=== PATIENT | female | born 1990 | race Caucasian/White ===

== ENCOUNTER 2023-06-25 05:41 | Inpatient (IN) | payer BC ==
[2023-06-25 06:30] VITALS: BMI 34.7
[2023-06-25] MEDS ORDERED: Ibuprofen 800 MG TAB PO PRN (06:30)
[2023-06-25] MEDS ORDERED: Lidocaine 1% (PF) 30 ML VIAL SC PRN (06:30)
[2023-06-25] MEDS ORDERED: Carboprost 250 MCG/ML AMP IM PRN (06:30)
[2023-06-25] MEDS ORDERED: Acetaminophen 500 MG TAB PO PRN (06:30)
[2023-06-25] MEDS ORDERED: Ondansetron PF 4 MG/2 ML Vial IVP PRN ×2 (06:30→10:01)
[2023-06-25] MEDS ORDERED: Methylergonovine 0.2 MG/ML VIAL IM PRN (06:30)
[2023-06-25] MEDS ORDERED: Misoprostol 200 MCG TAB PR PRN (06:30)
[2023-06-25] MEDS ORDERED: HYDROcodone/Acetaminophen 5/325 mg Tablet PO PRN ×2 (06:30)
[2023-06-25] MEDS ORDERED: fentaNYL 50 mcg/mL 1 mL Vial SLOW IVP PRN (06:30)
[2023-06-25] MEDS ORDERED: hydrALAZINE 20 MG/ML VIAL SLOW IVP PRN (06:30)
[2023-06-25] MEDS ORDERED: Promethazine HCl 25 MG/ML VIAL IM PRN ×2 (06:30→10:01)
[2023-06-25] MEDS ORDERED: Oxytocin 30 units/NS 500 ML 500 ML IV SCH (06:30)
[2023-06-25] MEDS ORDERED: Lactated Ringer's 1,000 ML IV SCH ×2 (06:30)
[2023-06-25 07:01] LABS: Hematocrit 42.7 % (34.9-44.5); Hemoglobin 14.9 g/dL (12.0-15.5); Mean Corpuscular HGB CONC 34.9 g/dL (32.0-36.0); Mean Corpuscular Hemoglobin 31.7 pg (27.0-33.0); Mean Corpuscular Volume 90.9 fl (81.6-98.3); Mean Platelet Volume 9.5 fl (7.4-10.4); Platelet Count 337 10x3/uL (150-450); RBC Distribution Width 13.2 % (11.5-14.5); White Blood Cell (WBC) Count 14.8 10x3/uL (3.5-10.5)
[2023-06-25] MEDS ORDERED: fentaNYL/Ropivacaine Epidural 100 ML ONE (07:13)
[2023-06-25 07:34] LABS: HBSAg Index 0.04 S/CO (0-0.99); Hep B Surf Ag - L&D Non-Reactive S/CO (NonReactive); Syphilis Antibody Nonreactive (Nonreactive); Syphilis Antibody Index 0.08 S/CO (<1.00 Non-Reactive)
[2023-06-25] MEDS ORDERED: Moisturizing Cream (Eucerin) 113 GM JAR TOP PRN (10:01)
[2023-06-25] MEDS ORDERED: Acetaminophen 325 MG TAB PO PRN (10:01)
[2023-06-25] MEDS ORDERED: diphenhydrAMINE 50 MG/ML VIAL IVP PRN (10:01)
[2023-06-25] MEDS ORDERED: Lactated Ringer's 500 ML IV PRN (10:01)
[2023-06-25] MEDS ORDERED: Naloxone HCl 0.4 mg/ml Vial IVP PRN ×2 (10:01)
[2023-06-25] MEDS ORDERED: ePHEDrine Sulfate 50 MG/10 ML VIAL SLOW IVP PRN (10:01)
[2023-06-25] MEDS ORDERED: fentaNYL 2 mcg/Ropivacaine 0.2% Epidural 100 ML CADD EPIDURAL SCH (10:15)
[2023-06-25] MEDS ORDERED: Communication Order-Pharmacy FS SCH (10:15)
[2023-06-25] MEDS ORDERED: Calcium Carbonate 500 MG ChewTAB PO SCH ×2 (15:00→20:15)
[2023-06-25] MEDS ORDERED: Bupivacaine 0.25% HCL 30 ML VIAL ONE (16:37)
[2023-06-25] MEDS ORDERED: Lidocaine 2% MPF 10 ML AMP (For Epidural Use) ONE (16:37)
[2023-06-25] MEDS ORDERED: CEFAZOLIN 2 GM VIAL ONE (23:44)
[2023-06-25] MEDS ORDERED: Azithromycin 500 MG VIAL ONE (23:45)
[2023-06-25] MEDS ORDERED: Tranexamic Acid 1,000 MG/10 ML VIAL ONE (23:45)
[2023-06-25] MEDS ORDERED: Misoprostol 200 MCG TAB ONE (23:45)
[2023-06-25] MEDS ORDERED: Methylergonovine 0.2 MG/ML VIAL ONE (23:45)
[2023-06-25] MEDS ORDERED: Carboprost 250 MCG/ML AMP ONE (23:45)
[2023-06-25] MEDS ORDERED: PHENYLEPHRINE-NS 100 MCG/ML 10 ML SYRINGE ONE (23:55)
[2023-06-25] MEDS ORDERED: Ondansetron PF 4 MG/2 ML Vial ONE (23:58)
[2023-06-26] MEDS ORDERED: Oxytocin 10 UNITS/ML VIAL ONE ×2 (00:10→00:17)
[2023-06-26] MEDS ORDERED: Dexamethasone 4 mg/ml Vial ONE (00:19)
[2023-06-26] MEDS ORDERED: PHENYLEPHRINE-NS 100 MCG/ML 10 ML SYRINGE ONE ×2 (00:23→00:32)
[2023-06-26] MEDS ORDERED: Morphine PF 10 MG/10 ML VIAL ONE (00:27)
[2023-06-26] MEDS ORDERED: Metoclopramide HCl 10 MG/2 ML VIAL ONE (00:31)
[2023-06-26] MEDS ORDERED: Promethazine HCl 25 MG/ML VIAL ONE (00:31)
[2023-06-26] MEDS ORDERED: Ondansetron PF 4 MG/2 ML Vial IVP PRN ×2 (01:06)
[2023-06-26] MEDS ORDERED: Moisturizing Cream (Eucerin) 113 GM JAR TOP PRN (01:06)
[2023-06-26] MEDS ORDERED: Promethazine HCl 25 MG SUPP PR PRN (01:06)
[2023-06-26] MEDS ORDERED: Naloxone HCl 0.4 mg/ml Vial IV PRN (01:06)
[2023-06-26] MEDS ORDERED: Naloxone HCl 0.4 mg/ml Vial IVP PRN ×2 (01:06)
[2023-06-26] MEDS ORDERED: diphenhydrAMINE 50 MG/ML VIAL IVP PRN (01:06)
[2023-06-26] MEDS ORDERED: Promethazine HCl 25 MG/ML VIAL IM PRN (01:06)
[2023-06-26] MEDS ORDERED: Meperidine HCl/PF 25 MG/ML VIAL SLOW IVP PRN (01:06)
[2023-06-26] MEDS ORDERED: fentaNYL 50 mcg/mL 1 mL Vial SLOW IVP PRN (01:06)
[2023-06-26] MEDS ORDERED: Communication Order-Pharmacy FS SCH (01:15)
[2023-06-26] MEDS ORDERED: Ketorolac Tromethamine 30 MG/ML VIAL IVP SCH (01:15)
[2023-06-26 01:57] LABS: Critical Notified By: CP.PH; pH (Cord, venous) 7.356 (7.250-7.350)
[2023-06-26] MEDS ORDERED: hydrALAZINE 20 MG/ML VIAL SLOW IVP PRN (04:28)
[2023-06-26] MEDS ORDERED: Lanolin Ointment 7 GM TUBE TOP PRN (04:28)
[2023-06-26] MEDS ORDERED: Boostrix 0.5 ML (Tdap) VIAL (>/=7 yrs of age) IM ONE (04:28)
[2023-06-26] MEDS ORDERED: diphenhydrAMINE 25 MG CAP PO PRN (04:28)
[2023-06-26] MEDS: Ketorolac Tromethamine 30 MG/ML VIAL IVP PRN ×3 (08:59→21:39)
[2023-06-26] MEDS: Prenatal Vitamin 1 TAB PO SCH (08:59)
[2023-06-26] MEDS: Docusate 100 MG CAP PO SCH ×2 (08:59→21:38)
[2023-06-26] MEDS: HYDROcodone/Acetaminophen 5/325 mg Tablet PO PRN ×3 (13:14→23:13)
[2023-06-27] MEDS: Ibuprofen 800 MG TAB PO SCH ×3 (04:17→21:26)
[2023-06-27] MEDS: HYDROcodone/Acetaminophen 5/325 mg Tablet PO PRN ×5 (05:15→22:00)
[2023-06-27] MEDS ORDERED: Ibuprofen 800 MG TAB PO PRN (06:00)
[2023-06-27 06:53] LABS: Hematocrit 33.7 % (34.9-44.5); Hemoglobin 11.3 g/dL (12.0-15.5); Mean Corpuscular HGB CONC 33.5 g/dL (32.0-36.0); Mean Corpuscular Hemoglobin 31.2 pg (27.0-33.0); Mean Corpuscular Volume 93.1 fl (81.6-98.3); Mean Platelet Volume 8.8 fl (7.4-10.4); Platelet Count 286 10x3/uL (150-450); RBC Distribution Width 13.9 % (11.5-14.5); Red Blood Cell (RBC) Count 3.62 10x6/uL (3.90-5.03)
[2023-06-27] MEDS: Docusate 100 MG CAP PO SCH ×2 (08:26→21:26)
[2023-06-27] MEDS: Prenatal Vitamin 1 TAB PO SCH (08:26)
[2023-06-28] MEDS: Ibuprofen 800 MG TAB PO SCH ×2 (05:02→13:35)
[2023-06-28] MEDS: HYDROcodone/Acetaminophen 5/325 mg Tablet PO PRN ×2 (07:42→13:36)
[2023-06-28] MEDS: Docusate 100 MG CAP PO SCH (07:42)
[2023-06-28] MEDS: Prenatal Vitamin 1 TAB PO SCH (07:42)
[2023-06-28 11:38] VITALS: BP 111/56; TEMP 98.3
== END 2023-06-28 13:55 | disposition home or self-care (01) | DRG 788 ==
LOC: CSHLD/OP 05:41 → CSHLD 06:30 → CSHPP 06-26 08:30
PROVIDERS: ADMIT Obstetrics & Gynecology; ATTEND Obstetrics & Gynecology
PROC: 10D00Z1 Extraction of Products of Conception, Low, Open Approach (ICD-10-PCS; principal; 2023-06-26)
PROC: 10907ZC Drainage of Amniotic Fluid, Therapeutic from Products of Conception, Via Natural or Artificial Opening (ICD-10-PCS; 2023-06-26)
DX: O62.1 Secondary uterine inertia (principal); Z3A.39 39 weeks gestation of pregnancy; Z37.0 Single live birth; O66.5 Attempted application of vacuum extractor and forceps
CPT/HCPCS: 36415; 51702; 82805; 85027; 86780; 86850; 86900; 86901; 87340; 99285; J1100; J1885; J2274; J2405; J2550; J2590; J2765; J3010; S0020